=== PATIENT | female | born 1950 | race Hispanic/Latino ===

== ENCOUNTER 2018-08-28 19:32 | Emergency (ER) | payer MEDICARE ==
[~2018-08-28 19:32] MED LIST: ACET1TAB25 PO; BISA5TAB12 EC; DOXY100T2 PO; EZET10TA26 PO; FURO40TA5 PO; GLIM2TAB3 PO; LOSA100T20 PO; SIME125T52 PO; TAMO20TA4 PO
[2018-08-28] MEDS ORDERED: DiphenhydrAMINE HCL 50 MG/ML VIAL ONE (20:30)
[2018-08-28] MEDS ORDERED: DEXAMETHASONE SOD PHOSPHATE 10MG/ML 1ML VIAL ONE (20:30)
[2018-08-28] MEDS ORDERED: FAMOTIDINE 20MG TAB 20 MG TAB ONE (20:30)
== END 2018-08-28 20:54 | disposition home or self-care (01) ==
LOC: EDH 19:32
DX: S20.161A Insect bite (nonvenomous) of breast, right breast, initial encounter (principal); E11.9 Type 2 diabetes mellitus without complications; E78.5 Hyperlipidemia, unspecified; Z98.890 Other specified postprocedural states; Z90.12 Acquired absence of left breast and nipple; W57.XXXA Bitten or stung by nonvenomous insect and other nonvenomous arthropods, initial encounter; Y93.89 Activity, other specified; Y92.89 Other specified places as the place of occurrence of the external cause; Y99.8 Other external cause status
CPT/HCPCS: 96372 ×2; 99283; J1100; J1200

== ENCOUNTER 2019-03-07 16:28 | Emergency (ER) | payer MEDICARE ==
[~2019-03-07 16:28] MED LIST changes: -BISA5TAB12 EC; +DONE5TAB33 PO; -DOXY100T2 PO; +ESOM40CA54 PO; -EZET10TA26 PO; -FURO40TA5 PO; +GABA-531 PO; +GEMF600T5 PO; -GLIM2TAB3 PO; +GLIM4TAB3 PO; +LINA145C PO; -LOSA100T20 PO; +LOSA100T58 PO; -SIME125T52 PO; +SULF1TAB42 PO; -TAMO20TA4 PO
[2019-03-07] MEDS ORDERED: ACETAMINOPHEN 325 MG TAB ONE (20:05)
[2019-03-07] MEDS ORDERED: TETANUS/DIPHTHERIA TOXOID [ADULT] 0.5 ML VIAL IM ONE (20:19)
== END 2019-03-07 20:43 | disposition home or self-care (01) ==
LOC: EDH 16:28
DX: S61.232A Puncture wound without foreign body of right middle finger without damage to nail, initial encounter (principal); W45.8XXA Other foreign body or object entering through skin, initial encounter; Y93.89 Activity, other specified; Y92.096 Garden or yard of other non-institutional residence as the place of occurrence of the external cause; Y99.8 Other external cause status
CPT/HCPCS: 73140; 90471; 90714

== ENCOUNTER 2022-03-09 16:44 | Emergency (ER) | payer MEDICARE ==
[~2022-03-09] VITALS: Ht 160 cm; Wt 90.7 kg
[~2022-03-09 16:44] MED LIST changes: +ACET-2079 PO; -ACET1TAB25 PO; -GEMF600T5 PO; +GEMF600T89 PO; -GLIM4TAB3 PO; +GLIM4TAB36 PO
[2022-03-09 18:35] LABS: BASOPHILS % (AUTO) 0.4 % (0.0-5.0); EOSINOPHILS % (AUTO) 1.7 % (0.0-8.0); HEMATOCRIT 37.6 % (36-48); MEAN CORPUSCULAR HEMOGLOBIN 30.5 pg (27.0-33.0); MEAN CORPUSCULAR HGB CONC 35.4 g/dL (32.0-36.0); MEAN CORPUSCULAR VOLUME 86.2 fL (79-99); MONOCYTES % (AUTO) 6.5 % (3.0-13.0); NEUTROPHILS % (AUTO) 55.1 % (40.0-77.0); PLATELET COUNT (AUTO) 196 K/uL (130-400); RED BLOOD CELL COUNT(AUTO) 4.36 MIL/uL (4.00-5.50); RED CELL DISTRIBUTION WIDTH 13.1 % (11.0-15.5)
[2022-03-09 18:39] LABS: APPEARANCE,URINE CLEAR (CLEAR); BILIRUBIN,URINE NEGATIVE (NEGATIVE); COLOR,URINE YELLOW (YELLOW); GLUCOSE, URINE (UA) 250 mg/dL (NEGATIVE); KETONES,URINE NEGATIVE (NEGATIVE); LEUKOCYTE ESTERASE ,URINE NEGATIVE (NEGATIVE); NITRATE,URINE NEGATIVE (NEGATIVE); OCCULT BLOOD,URINE NEGATIVE (NEGATIVE); PROTEIN,URINE NEGATIVE (NEGATIVE); UROBILINOGEN,URINE 0.2 mg/dL (0.2-1.0)
[2022-03-09 18:46] LABS: CREATININE 0.8 mg/dL (0.5-1.5); POTASSIUM 4.6 mmol/L (3.5-5.1)
[2022-03-09 18:51] LABS: ALBUMIN 3.5 g/dL (3.5-5.0); BILIRUBIN,TOTAL 0.6 mg/dL (0.2-1.0); TOTAL PROTEIN, SERUM 7.2 g/dL (6.0-8.3)
[2022-03-09] MEDS ORDERED: ICOS0.5C PO (19:01)
[2022-03-09] MEDS ORDERED: ATOR10TA69 PO (19:01)
[2022-03-09] MEDS ORDERED: METO25TA6 PO (19:01)
[2022-03-09] MEDS ORDERED: ENAL2.5T16 PO (19:01)
[2022-03-09] MEDS ORDERED: METF750T46 PO (19:01)
[2022-03-09] MEDS ORDERED: DONE5TAB33 PO (19:01)
[2022-03-09] MEDS ORDERED: APIX5TAB PO (19:01)
[2022-03-09] MEDS ORDERED: FURO20TA4 PO (19:01)
[2022-03-09 19:28] LABS: BACTERIA,URINE Rare /HPF (None Seen); RBC,URINE 0-1 /HPF (0-1); WBC,URINE 0-1 /HPF (0-1)
[2022-03-09 19:29] LABS: SQUAMOUS EPITHELIAL CELL,UR Few /HPF (0-2)
[2022-03-09 20:18] VITALS: BP 114/61
[2022-03-09] MEDS ORDERED: IOHEXOL 350 MG/ML 100ML INFUS..BTL IV ONE (21:15)
[2022-03-09] MEDS ORDERED: LINA290C PO (22:17)
== END 2022-03-09 22:49 | disposition home or self-care (01) ==
LOC: EDH 16:44
DX: K58.9 Irritable bowel syndrome, unspecified (principal); R10.12 Left upper quadrant pain; E11.9 Type 2 diabetes mellitus without complications; E78.00 Pure hypercholesterolemia, unspecified; I10 Essential (primary) hypertension; Z79.84 Long term (current) use of oral hypoglycemic drugs; Z79.899 Other long term (current) drug therapy; Z98.890 Other specified postprocedural states
CPT/HCPCS: 36415; 74178; 80053; 81001; 83690; 85025; 99285; Q9967

== ENCOUNTER → 2023-06-28 | Outpatient (CLI) | payer MEDICARE ==
[~2023-06-28] MED LIST changes: +APIX5TAB PO; +ATOR10TA69 PO; +ENAL2.5T16 PO; +FURO20TA4 PO; +ICOS0.5C PO; +LINA290C PO; -LOSA100T58 PO; +LOSA100T59 PO; +METF750T46 PO; +METO25TA6 PO
[2023-06-29 12:13] LABS: CREATININE 0.7 mg/dL (0.5-1.5); POTASSIUM 4.5 mmol/L (3.5-5.1)
[2023-06-29 12:14] LABS: HEMOGLOBIN A1C 8.3 % (4.0-6.0)
[2023-06-29 14:16] LABS: BASOPHILS # (AUTO) 0.02 K/uL (0.00-0.20); BASOPHILS % (AUTO) 0.4 % (0.0-5.0); EOSINOPHILS # (AUTO) 0.11 K/uL (0.00-0.70); EOSINOPHILS % (AUTO) 2.1 % (0.0-8.0); HEMATOCRIT 35.7 % (36-48); IMMATURE GRANULOCYTE ABSOLUTE 0.01 K/uL (0-1); LYMPHOCYTES # (AUTO) 1.5 K/uL (1.0-4.8); LYMPHOCYTES % (AUTO) 28.5 % (21.0-51.0); MEAN CORPUSCULAR HEMOGLOBIN 27.4 pg (27.0-33.0); MEAN CORPUSCULAR HGB CONC 31.9 g/dL (32.0-36.0); MEAN CORPUSCULAR VOLUME 85.8 fL (79-99); MONOCYTES # (AUTO) 0.4 K/uL (0.1-1.0); MONOCYTES % (AUTO) 6.9 % (3.0-13.0); NEUTROPHILS # (AUTO) 3.3 K/uL (1.8-7.7); NEUTROPHILS % (AUTO) 61.9 % (40.0-77.0); NUCLEATED RED BLOOD CELLS 0.4 % (0.0-0.19); PLATELET COUNT (AUTO) 296 K/uL (130-400); RED BLOOD CELL COUNT(AUTO) 4.16 MIL/uL (4.00-5.50); WHITE BLOOD COUNT (AUTO) 5.3 K/uL (4.8-10.8)
== END | disposition home or self-care (01) ==
LOC: LAB 08:30
PROVIDERS: ATTEND Internal Medicine
DX: I25.119 Atherosclerotic heart disease of native coronary artery with unspecified angina pectoris (principal); I25.5 Ischemic cardiomyopathy; E11.9 Type 2 diabetes mellitus without complications; I10 Essential (primary) hypertension; Z95.810 Presence of automatic (implantable) cardiac defibrillator; Z79.01 Long term (current) use of anticoagulants; Z79.899 Other long term (current) drug therapy
CPT/HCPCS: 36415; 80048; 80061; 83036; 85025

== ENCOUNTER → 2023-09-28 | Outpatient (CLI) | payer MEDICARE | END | disposition home or self-care (01) | LOC: SHCH 08:12 | PROVIDERS: ATTEND Internal Medicine | DX: I08.2 Rheumatic disorders of both aortic and tricuspid valves (principal); I25.5 Ischemic cardiomyopathy; I11.9 Hypertensive heart disease without heart failure; E78.5 Hyperlipidemia, unspecified | CPT/HCPCS: 93306 ==

== ENCOUNTER → 2024-04-15 | Outpatient (CLI) | payer MEDICARE, MEDICAID ==
[~2024-04-15] MED LIST changes: -ENAL2.5T16 PO; +ENAL2.5T71 PO; -ESOM40CA54 PO; +ESOM40CA66 PO
[2024-04-15 10:57] LABS: ALBUMIN 3.3 g/dL (3.5-5.0); BILIRUBIN,TOTAL 0.6 mg/dL (0.2-1.0); CREATININE 0.8 mg/dL (0.5-1.0); POTASSIUM 4.3 mmol/L (3.5-5.1)
== END | disposition home or self-care (01) ==
LOC: LAB 10:00
PROVIDERS: ATTEND Family Medicine Geriatric Medicine
DX: I11.0 Hypertensive heart disease with heart failure (principal)
CPT/HCPCS: 36415; 80053